=== PATIENT | female | born 1930 | race American Indian/Alaskan Native ===

== ENCOUNTER 2019-10-28 10:30 | Outpatient (CLI) | payer MEDICARE, OTHER ==
--- NOTE | 2019-10-28 12:01 | Cat Scan Report ---
CT ABDOMEN AND PELVIS WITHOUT CONTRAST HISTORY: Right flank pain. COMPARISON: No comparison imaging. TECHNIQUE: Routine abdominal and pelvic CT exam performed without contrast. Lack of intravenous cont rast limits evaluation of the vascular and solid organs.. All CT scans at this location are performed using CT dose reduction for ALARA by means of automated exposure control. FINDINGS: CT ABDOMEN: Lung Bases: Clear. Liver: Normal liver size, contour and density. Biliary: Multiple radiopaque calculi within the gallbladder. The largest measures 2 cm. Normal gallbl adder wall thickness and no pericholecystic fluid. The intrahepatic and extra hepatic bile ducts are normal. Spleen: Normal size. A 2.7 cm anterior superior cyst. Pancreas: Small and unremarkable. Adrenals: Normal. Kidneys: Small with nondilated renal collecting systems and ureters. Bilateral benign cysts. The larg est is in the lower pole of the left kidney and measures 4.5 cm. A 1.5 cm hyperdense left upper pole renal cyst measures 70 Hounsfield units. No urinary calculus. Lymphatics: No lymphadenopathy. Vasculature: No significant abnormality. Bowel/Peritoneum: No significant abnormality. No free air. Normal appendix. A peritoneal dialysis cat heter and a large volume of intraperitoneal dialysate. No free air. CT PELVIC: : A small uterus with at least one right subserosal fibroid measuring 3.5 cm. Benign uterine calcif ications. Ovaries are not identified. A healed midline surgical incision. Lymphatics: No lymphadenopathy. Osseous Structures: No suspicious bone lesion. 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 Additional Findings: None IMPRESSION: 1. Cholelithiasis but no signs of acute cholecystitis. 2. No signs of pancreatitis. 3. Bilateral benign renal cysts. 4. Uterine leiomyomata.. 5. No urinary calculus Signer Name: Ike Gilmore MD Signed: 10/28/2019 11:57 AM Workstation Name: [id number]
== END 2019-10-28 10:31 | disposition home or self-care (01) ==
LOC: CT 10:30
PROVIDERS: ATTEND Family Medicine
DX: R10.9 Unspecified abdominal pain (principal); N28.1 Cyst of kidney, acquired
CPT/HCPCS: 74176